=== PATIENT | male | born 1980 | race Hispanic/Latino ===

== ENCOUNTER 2019-04-17 11:23 | Emergency (ER) | payer BC, SELFPAY ==
[2019-04-17] MEDS ORDERED: Acetaminophen 500 MG TAB ONE (11:56)
[2019-04-17] MEDS ORDERED: Dexamethasone 20 MG/5 ML VIAL ONE (11:58)
== END 2019-04-17 12:25 | disposition home or self-care (01) ==
LOC: NAV ERS 11:23
DX: J02.9 Acute pharyngitis, unspecified (principal); Z86.19 Personal history of other infectious and parasitic diseases
CPT/HCPCS: 87081; 87430; 87804; 99283; J1100